=== PATIENT | male | born 1950 | race Caucasian/White ===

== ENCOUNTER 2018-04-18 07:04 | Day surgery (SDC) | payer MEDICARE, OTHER ==
[2018-04-10 11:48] VITALS: BMI 24.7
[2018-04-18] MEDS ORDERED: PROPOFOL 200 MG/20 ML VIAL ONE (11:03)
[2018-04-18] MEDS ORDERED: Lidocaine 1% PF 5 ML VIAL ONE (11:03)
--- NOTE | 2018-04-18 11:33 | ECHO ---
TRANSESOPHAGEAL ECHOCARDIOGRAM: DATE OF SERVICE: 04/18/18 PREPROCEDURE DIAGNOSIS: Mitral valve prolapse. DETAILS: Transesophageal echo was performed to evaluate mitral valve prolapse and severity of MR. The anesthes ia department provided sedation for the patient. Please see their notes for details. After adequate s edation was achieved, the transesophageal probe was inserted into the patient's mouth and into the es ophagus, and multiplanar views were then obtained. FINDINGS: Left ventricle normal size with normal wall thickness. Systolic function is normal with estimated eje ction fraction at 60%. Left atrium mildly dilated. Right atrium dilated. Right ventricle normal size with normal systolic function. Aortic valve has three cusps, no stenosis. There is mild aortic insufficiency. Pulmonary valve structurally normal. No stenosis or regurgitation. Tricuspid valve has mild prolapse of the leaflet attached to the free wall. There is mild to moderate tricuspid regurgitation. Mitral valve has severe bileaflet mitral valve prolapse with severe mitral regurgitation. Central jet in two different areas. Intraatrial septum appears to be intact by color Doppler; however, on agitated saline study, there is a very small amount of bubbles crossing over after 3 beats. Thoracic aorta is with Grade II out of V atherosclerotic disease. CONCLUSIONS: 1. Normal systolic function, ejection fraction 60%. 2. Biatrial enlargement. 3. Intraatrial septum with most likely a small patent foramen ovale, confirmed by agitated saline st udy. 4. Mild to moderate TR. 5. Mild AI. 6. Severe bileaflet mitral valve prolapse with severe central jet of mitral regurgitation. 7. Grade II out of V atherosclerotic disease of the thoracic aorta.
== END 2018-04-18 11:12 | disposition home or self-care (01) ==
LOC: CCL 07:04
PROVIDERS: ATTEND Internal Medicine Cardiovascular Disease
PROC: B245ZZ4 Ultrasonography of Left Heart, Transesophageal (ICD-10-PCS; principal; 2018-04-18)
DX: I34.0 Nonrheumatic mitral (valve) insufficiency (principal); I70.0 Atherosclerosis of aorta; N40.0 Benign prostatic hyperplasia without lower urinary tract symptoms; Z79.82 Long term (current) use of aspirin; Z79.899 Other long term (current) drug therapy
CPT/HCPCS: 93312; J2001; J2704

== ENCOUNTER 2018-05-03 13:43 | Outpatient (CLI) | payer MEDICARE, OTHER ==
[2018-05-03 16:17] LABS: #Basophils 0.1 thou/uL (0.0-0.2); #Eosinphils 0.1 thou/uL (0.0-0.7); #Lymphocytes 2.1 thou/uL (1.20-3.40); #Monocytes 0.6 thou/uL (0.11-0.59); #Neutrophils 6.3 thou/uL (1.40-6.50); %Basophils 0.8 % (0.0-1.0); %Eosinophils 1.4 % (0.0-10.0); %Lymphocytes 22.6 % (21.0-51.0); %Monocytes 6.8 % (0.0-10.0); %Neutrophils 68.4 % (42.0-75.0); Mean Corpuscular HGB CONC 33.3 g/dL (32.0-36.0); Mean Corpuscular Volume 93.1 fL (78.0-98.0); Mean Platelet Volume 8.1 fL (7.4-10.4); Platelet Count 505 thou/uL (130-400); RBC Distribution Width 13.2 % (11.5-14.5); Red Blood Cell (RBC) Count 5.15 mill/uL (4.70-6.10); White Blood Cell (WBC) Count 9.2 thou/uL (4.8-10.8)
[2018-05-03 16:24] LABS: INR-International Normal Ratio 1.1; PTT 34.4 SEC (22.9-36.1); Prothrombin Time 13.8 SEC (12.0-14.7)
[2018-05-03 16:32] LABS: ALT (SGPT) 29 U/L (8-55); AST (SGOT) 25 U/L (5-34); Albumin 4.2 g/dL (3.4-4.8); Alkaline Phosphatase 64 U/L (40-150); Anion Gap 14 mmol/L (10-20); BUN (Urea Nitrogen) 15 mg/dL (8.4-25.7); Bilirubin, Total 0.4 mg/dL (0.2-1.2); Calc. Creatinine Clearance 0 mL/min (70-130); Calcium 9.4 mg/dL (7.8-10.44); Carbon Dioxide 27 mmol/L (23-31); Chloride 105 mmol/L (98-107); Estimated GFR-MDRD 77; Globulin 2.7 g/dL (2.4-3.5); Glucose 125 mg/dL (80-115); Potassium 4.5 mmol/L (3.5-5.1); Protein, Total 6.9 g/dL (5.8-8.1); Sodium 141 mmol/L (136-145)
== END 2018-05-03 13:44 | disposition home or self-care (01) ==
LOC: LABBT 13:43
PROVIDERS: ATTEND Internal Medicine Cardiovascular Disease
DX: Z01.812 Encounter for preprocedural laboratory examination (principal); I34.0 Nonrheumatic mitral (valve) insufficiency
CPT/HCPCS: 80053; 85025; 85610; 85730

== ENCOUNTER 2018-05-06 06:03 | Day surgery (SDC) | payer MEDICARE, OTHER ==
[2018-05-03 14:56] VITALS: BMI 23.5
[2018-05-06] MEDS ORDERED: Heparin 10,000 UNITS/1 ML VIAL ONE ×2 (06:49→07:34)
[2018-05-06 07:27] LABS: Cardiac Risk 3.4 (Less than 4.5)
[2018-05-06] MEDS ORDERED: Verapamil 5 MG/2 ML VIAL ONE (07:34)
[2018-05-06] MEDS ORDERED: Nitroglycerin 100MG/250ML BOT 250 ML ONE (07:34)
[2018-05-06] MEDS ORDERED: Midazolam HCl 2 mg/2 ml Vial ONE (07:41)
[2018-05-06] MEDS ORDERED: Fentanyl 100 MCG/2 ML VIAL ONE (07:41)
[2018-05-06] MEDS ORDERED: Iopamidol 370 76% 100 ML VIAL ONE (09:24)
[2018-05-06] MEDS ORDERED: Iopamidol 370 76% 50 ML VIAL FS ONE (09:24)
== END 2018-05-06 11:28 | disposition home or self-care (01) ==
LOC: CCL 06:03
PROVIDERS: ATTEND Internal Medicine Cardiovascular Disease
PROC: 4A023N7 Measurement of Cardiac Sampling and Pressure, Left Heart, Percutaneous Approach (ICD-10-PCS; principal; 2018-05-06)
PROC: B2101ZZ Fluoroscopy of Single Coronary Artery using Low Osmolar Contrast (ICD-10-PCS; 2018-05-06)
DX: I34.0 Nonrheumatic mitral (valve) insufficiency (principal); I34.1 Nonrheumatic mitral (valve) prolapse; N40.0 Benign prostatic hyperplasia without lower urinary tract symptoms
CPT/HCPCS: 80061; 93458; 99152; C1769; J1644; J2250; J3010; Q9967

== ENCOUNTER 2018-06-17 14:04 | Outpatient (CLI) | payer MEDICARE, OTHER ==
--- NOTE | 2018-06-17 14:39 | RAD ---
2 VIEWS CHEST: Date: 06/17/18 PROVIDED CLINICAL HISTORY: Mitral valve insufficiency. FINDINGS: Cardiac and mediastinal silhouette is within normal limits. Lungs appear clear. No pleural fluid or p neumothorax apparent. IMPRESSION: No evidence for an acute cardiopulmonary process. POS: OFF
[2018-06-17 14:59] LABS: #Basophils 0.1 thou/uL (0.0-0.2); #Eosinphils 0.2 thou/uL (0.0-0.7); #Lymphocytes 2.5 thou/uL (1.20-3.40); #Monocytes 0.5 thou/uL (0.11-0.59); #Neutrophils 5.2 thou/uL (1.40-6.50); %Basophils 1.4 % (0.0-1.0); %Eosinophils 2.3 % (0.0-10.0); %Lymphocytes 29.2 % (21.0-51.0); %Monocytes 5.8 % (0.0-10.0); %Neutrophils 61.4 % (42.0-75.0); Mean Corpuscular HGB CONC 33.3 g/dL (32.0-36.0); Mean Corpuscular Hemoglobin 30.3 pg (27.0-31.0); Mean Corpuscular Volume 91.1 fL (78.0-98.0); Mean Platelet Volume 7.8 fL (7.4-10.4); Platelet Count 480 thou/uL (130-400); RBC Distribution Width 13.3 % (11.5-14.5); Red Blood Cell (RBC) Count 4.95 mill/uL (4.70-6.10); White Blood Cell (WBC) Count 8.4 thou/uL (4.8-10.8)
[2018-06-17 15:01] LABS: PTT 34.4 SEC (22.9-36.1); Prothrombin Time 13.7 SEC (12.0-14.7)
[2018-06-17 15:02] LABS: Bilirubin Negative (Negative); Blood, Urine Negative (Negative); Clarity Clear (Clear); Glucose, Urine (Dipstick) Negative (Negative); Leukocyte Negative (Negative); Nitrite Negative (Negative); Protein, Urine (Dipstick) Negative (Neg-Trace); Urobilinogen 0.2 mg/dL (0.2-1.0)
[2018-06-17 15:10] LABS: Bacteria/HPF Rare-Few HPF (None Seen); RBC/HPF None Seen HPF (0-3); Squamous Epithelial None Seen HPF (0-3); WBC/HPF None Seen HPF (0-3)
[2018-06-17 15:11] LABS: Anion Gap 11 mmol/L (10-20); BUN (Urea Nitrogen) 16 mg/dL (8.4-25.7); Calc. Creatinine Clearance 0 mL/min (70-130); Calcium 9.2 mg/dL (7.8-10.44); Carbon Dioxide 29 mmol/L (23-31); Chloride 104 mmol/L (98-107); Estimated GFR-MDRD 89; Glucose 112 mg/dL (80-115); Potassium 3.9 mmol/L (3.5-5.1); Sodium 140 mmol/L (136-145)
--- NOTE | 2018-06-17 15:15 | CT ---
CT CHEST WITHOUT CONTRAST: DATE: 06/17/2018. PROVIDED CLINICAL HISTORY: Preoperative planning for minimally invasive mitral valve replacement. FINDINGS: No comparisons. Evaluation is limited by patient respiratory motion. The heart, pericardium, and great vessels are suboptimally evaluated in the absence of IV contrast ma terial. There is minimal calcification seen involving the supralateral margin of the aortic arch. S cattered minimal calcification involves the descending thoracic aorta. There is no evidence for orestes nary or valvular calcification. The airway appears patent and of normal caliber. The lungs are free of significant opacity where not affected by respiratory motion. No pleural fluid or pneumothorax apparent. No evidence for thoraci c lymph node enlargement with limitations due to lack of IV contrast material. The visualized portions of the upper abdomen demonstrate a partially visualized exophytic cystic stru cture arising from the superior pole of the left kidney, incompletely characterized on the basis of t his study. The osseous structures demonstrate no concerning lytic or blastic lesions. IMPRESSION: 1. Minimal vascular calcification. 2. Incompletely characterized left renal hypodensity, statistically reflecting a cyst. Correlation with renal ultrasound is recommended. POS: OFF
[2018-06-17 15:35] LABS: Follow-up Chemistry Comp? YES; Follow-up Result - Chemistry REPORT FAXED
== END 2018-06-17 14:05 | disposition home or self-care (01) ==
LOC: SCSCT 14:04
DX: I34.0 Nonrheumatic mitral (valve) insufficiency (principal); I70.0 Atherosclerosis of aorta; R93.422 Abnormal radiologic findings on diagnostic imaging of left kidney
CPT/HCPCS: 36415; 71046; 71250; 80048; 81001; 85025; 85610; 85730

== ENCOUNTER 2019-04-03 10:13 | Outpatient (CLI) | payer MEDICARE, OTHER ==
--- NOTE | 2019-04-03 12:59 | ULT ---
ABDOMINAL ULTRASOUND: Date: 04/03/2019 HISTORY: Abnormal liver enzymes. FINDINGS: Images of the gallbladder show internal echoes suggesting mild sludge. No evidence of gallstone. Gall bladder wall thickness is normal. Common duct is normal caliber, measured at 4 mm. Visualized aorta and IVC are unremarkable. Pancreas mostly obscured, but unremarkable as visualized. Liver and spleen unremarkable. Both kidneys unremarkable. A simple cyst in the superior pole of the left kidney is identified measur ing 2.5-3.0 cm. IMPRESSION: Question mild gallbladder sludge. No definite gallstones. Abdominal ultrasound otherwise unremarkable . POS: [facility]
== END 2019-04-03 10:14 | disposition home or self-care (01) ==
LOC: SCSULT 10:13
PROVIDERS: ATTEND Family Medicine
DX: R74.8 Abnormal levels of other serum enzymes (principal)
CPT/HCPCS: 93975

== ENCOUNTER 2019-11-28 14:10 | Observation (INO) | payer MEDICARE, OTHER ==
[2019-11-28 15:01] LABS: #Basophils 0.1 thou/uL (0.0-0.2); #Lymphocytes 2.2 thou/uL (1.20-3.40); #Monocytes 0.6 thou/uL (0.11-0.59); #Neutrophils 8.4 thou/uL (1.40-6.50); %Basophils 0.9 % (0.0-1.0); %Eosinophils 0.4 % (0.0-10.0); %Lymphocytes 19.2 % (21.0-51.0); %Monocytes 5.2 % (0.0-10.0); %Neutrophils 74.4 % (42.0-75.0); Hemoglobin 17.6 g/dL (14.0-18.0); Mean Corpuscular HGB CONC 34.1 g/dL (32.0-36.0); Mean Corpuscular Hemoglobin 31.7 pg (27.0-31.0); Platelet Count 610 thou/uL (130-400); RBC Distribution Width 13.1 % (11.5-14.5); Red Blood Cell (RBC) Count 5.57 mill/uL (4.70-6.10); White Blood Cell (WBC) Count 11.3 thou/uL (4.8-10.8)
[2019-11-28 15:18] LABS: Bilirubin Negative (Negative); Blood, Urine Negative (Negative); Clarity Clear (Clear); Glucose, Urine (Dipstick) Normal (Negative); Ketone, Urine Negative (Negative); Leukocyte Negative Leu/uL (Negative); Nitrite Negative (Negative); Protein, Urine (Dipstick) Negative (Neg-Trace); Specific Gravity, Urine 1.009 (1.002-1.036); Urobilinogen Normal mg/dL (Less than 2)
[2019-11-28 15:32] LABS: ALT (SGPT) 68 U/L (8-55); AST (SGOT) 53 U/L (5-34); Albumin 4.2 g/dL (3.4-4.8); Alkaline Phosphatase 99 U/L (40-110); Anion Gap 12 mmol/L (10-20); BUN (Urea Nitrogen) 11 mg/dL (8.4-25.7); Bilirubin, Total 0.7 mg/dL (0.2-1.2); CK (CPK) 48 U/L (30-200); Calc. Creatinine Clearance 0 mL/min (70-130); Calcium 9.1 mg/dL (7.8-10.44); Carbon Dioxide 27 mmol/L (23-31); Chloride 103 mmol/L (98-107); Estimated GFR-MDRD 79; Globulin 3.1 g/dL (2.4-3.5); Glucose 154 mg/dL (80-115); Lipase 43 U/L (8-78); Potassium 4.3 mmol/L (3.5-5.1); Protein, Total 7.3 g/dL (5.8-8.1); Sodium 138 mmol/L (136-145)
--- NOTE | 2019-11-28 15:32 | RAD ---
XR Chest 1 View Portable HISTORY: Chest pain COMPARISON: 06/17/2018 FINDINGS: The heart size normal. The lungs are expanded without lobar consolidation, pneumothoraces o r pleural effusions. IMPRESSION: No radiographic evidence of acute cardiopulmonary process.
[2019-11-28] MEDS ORDERED: Aspirin Chewable 81 MG TAB ONE (16:29)
[2019-11-28 18:05] LABS: Troponin I 0.019 ng/mL (< 0.028)
[2019-11-28] MEDS ORDERED: Acetaminophen 650 MG Suppository PR PRN (18:07)
[2019-11-28] MEDS ORDERED: Acetaminophen 325 MG TAB PO PRN (18:07)
[2019-11-28] MEDS: Famotidine 20 MG TAB PO SCH (21:31)
[2019-11-28 21:33] LABS: Troponin I 0.026 ng/mL (< 0.028)
--- NOTE | 2019-11-28 21:55 | ULT ---
Carotid duplex sonogram HISTORY: Syncope. Vascular disease. FINDINGS: Right: Minimal plaque. Color and spectral Doppler evaluation, peak systolic velocity of 66 cm/s, and IC to CC ratio of 0.9 suggest no hemodynamically significant stenosis within the extracranial right ICA. Antegrade flow within the vertebral artery. Left: Minimal plaque. Color and spectral Doppler evaluation, peak systolic velocity of 63 cm/s, and I C to CC ratio of 1.2 suggest no hemodynamically significant stenosis within the extracranial left ICA. Antegrade flow within the vertebral artery. IMPRESSION : No evidence of significant stenosis.
[2019-11-28 22:10] VITALS: BMI 23.9
--- NOTE | 2019-11-29 00:19 | PDOC.HHP ---
Hospitalist HPI - History of Present Illness chest pain History of Present Illness: Patient presents with complaints of chest pain that occurred earlier today while he was sitting. He states it was on the right side of his chest and describes "small stabs" and then he felt it on the left side of his chest and then in between the scapula. He states the pain lasted a few seconds and was a 7/10 in severity. He eased quickly and was not reproducible on palpation. He denies any associated shortness of breath or diaphoresis. States his pain was tolerable and he did not take anything for it. It subsided on its own and has not recurred since. He states this is the first time he has experienced discom fort but has had vague symptoms since March. Reports having almost daily episodes of focal numbness in different parts of his body that last a few seconds. One one occasion it was on his right elbow, another occasion on involved his knees. Reports having a stroke in 10/2018 after having MV repair. He therefore believes this are indicative of TIAs. Denies any associated slurred speech or facial weakness. No extremity weakness. Has only had difficulty holding objects on one occasion when he had a brief episode of numbness in his left thumb and forefinger that lasted seconds. He discussed with Dr. Magdaleno who advised him to come in. He reports having a loop recorder in place due to frequent episodes of lightheadedness which cause him to be unsteady on his feet. He saw Dr. Magdaleno in Mar 2018 when he had a near syncopal episode. States he was putting air in his tire and was bent over while talking on the phone and upon standing he became lightheaded and dizzy. Did not have a fall. Currently he denies any chest pain or sob. Denies any lightheadedness/dizziness today. Has not had any n/v. No diaphoresis. Denies any fevers, chills or sweats. No cough or hemoptysis. No lower leg swelling or calf tenderness. No abdominal pain, bowel changes or urinary symptoms. All other review of systems negative. Reports having an Echo done in the last [address] Magdaleno. Of note, patient had a cath done in 04/2018 which was normal. ED COURSE: EKG done in the ED showed NSR, with HR of 69. Frequent PVCs noted. CXR unremarkable. Labs showed WCC 11.3, Hgb 17.6, Hct 51.8, Platelets 610. Trop negative. AST 53, ALT 68, lipase normal. CK 48. Glucose 154. BUN 11, creat 0.95, GFR 79. UA unremarkable. Given Aspirin 324 mg PO x 1. PAST MEDICAL HISTORY: 1. Hx of Afib 2. History of CVA 3. GERD. 4. Hyperlipidemia. 5. BPH. PAST SURGICAL HISTORY: 1. Mitral valve repair 2019. SOCIAL HISTORY: Denies any tobacco use, alcohol consumption or drug use. FAMILY HISTORY: His mother who is had heart disease. ALLERGIES: No known drug allergies. CURRENT MEDICATIONS: 1. Eliquis. 2. Finasteride. 3. Omeprazole. 4. B12. 5. Atorvastatin. Hospitalist ROS - Medication Medications: Active Medications Generic Name Dose Route Start Last Admin Trade Name Freq PRN Reason Stop Dose Admin Famotidine 20 mg 11/28/19 21:00 11/28/19 21:31 Famotidine 20 Mg Tab PO 20 mg BID JENNIFER Administration Sodium Chloride 10 ml 11/28/19 18:07 11/28/19 21:32 Flush - Normal Saline 10 Ml Syringe IVF 10 ml Q12HR PRN Administration Saline Flush - Exam General Appearance: NAD, awake alert General - other findings: VS: Temp 97.9, HR 68, BP 113/89, RR 17, O2 sat 97% on RA. Eye: PERRL, anicteric sclera ENT: normocephalic atraumatic, dry oral mucosa Neck: supple, no lymphadenopathy Heart: RRR, normal peripheral pulses Heart - other findings: not reproducible on exam Respiratory: CTAB, no wheezes, no rales, no ronchi, normal chest expansion, no tachypnea Gastrointestinal: soft, non-tender, non-distended, normal bowel sounds, no p alpable masses, no guarding, no rigidity Extremities: no edema Skin: normal turgor, no lesions, no rashes Neurological: cranial nerve grossly intact, normal sensation to touch, no focal deficits Neurological - other findings: power 5/5 in all extremities, coordination intact Musculoskeletal: normal tone, no muscle wasting Psychiatric: normal affect, normal behavior, A&O x 3 Psychiatric - other findings: Speech normal. Facial movements and sensation intact Hospitalist Results - Labs Result Diagrams: 11/29/19 01:14 11/28/19 14:29 Lab results: WBC 11.3 thou/uL (4.8-10.8) H 11/28/19 14:29 Hgb 17.6 g/dL (14.0-18.0) 11/28/19 14:29 Hct 51.8 % (42.0-52.0) 11/28/19 14:29 MCV 93.0 fL (78.0-98.0) 11/28/19 14:29 Plt Count 610 thou/uL (130-400) H 11/28/19 14:29 Neutrophils % 74.4 % (42.0-75.0) 11/28/19 14:29 Sodium 138 mmol/L (136-145) 11/28/19 14:29 Potassium 4.3 mmol/L (3.5-5.1) 11/28/19 14:29 Chloride 103 mmol/L (98-107) 11/28/19 14:29 Carbon Dioxide 27 mmol/L (23-31) 11/28/19 14:29 BUN 11 mg/dL (8.4-25.7) 11/28/19 14:29 Creatinine 0.95 mg/dL (0.7-1.3) 11/28/19 14:29 Glucose 154 mg/dL (80-115) H 11/28/19 14:29 Calcium 9.1 mg/dL (7.8-10.44) 11/28/19 14:29 Total Bilirubin 0.7 mg/dL (0.2-1.2) 11/28/19 14:29 AST 53 U/L (5-34) H 11/28/19 14:29 ALT 68 U/L (8-55) H 11/28/19 14:29 Alkaline Phosphatase 99 U/L (40-110) 11/28/19 14:29 Creatine Kinase 48 U/L (30-200) 11/28/19 14:29 Troponin I 0.026 ng/mL (< 0.028) 11/28/19 20:55 Serum Total Protein 7.3 g/dL (5.8-8.1) 11/28/19 14:29 Albumin 4.2 g/dL (3.4-4.8) 11/28/19 14:29 Lipase 43 U/L (8-78) 11/28/19 14:29 Urine Ketones Negative mg/dL (Negative) 11/28/19 15:02 Urine Blood Negative (Negative) 11/28/19 15:02 Urine Nitrite Negative (Negative) 11/28/19 15:02 Ur Leukocyte Esterase Negative Barbara/uL (Negative) 11/28/19 15:02 - Radiology Interpretation Chest x-ray Status: report reviewed by me Hospitalist H&P A/P - Problem (1) Chest pain Code(s): R07.9 - CHEST PAIN, UNSPECIFIED Status: Acute Assessment and Plan: No pain since arrival to ED. Continue cardiac monitoring. Trend troponins. Consult Dr. Magdaleno. (Normal cath in 04/2018). Continue aspirin and statin. (2) Lightheadedness Code(s): R42 - DIZZINESS AND GIDDINESS Status: Chronic Assessment and Plan: Loop recorder in since 03/2018, per patient. States echo done in last 6 months. No repeat unless indicated by Dr. Magdaleno. Orthostatic BPs ordered. Carotid US ordered. Monitor BP and glucose. (3) Numbness and tingling Code(s): R20.0 - ANESTHESIA OF SKIN; R20.2 - PARESTHESIA OF SKIN Status: Chronic Assessment and Plan: Vague transient episodes of pin point numbness tingling that varies in location. Day team to decide if further investigations or neuro input indicated. No symptoms at present. (4) History of CVA (cerebrovascular accident) Code(s): Z86.73 - PRSNL HX OF TIA (TIA), AND CEREB INFRC W/O RESID DEFICITS Status: Chronic (5) Afib Code(s): I48.91 - UNSPECIFIED ATRIAL FIBRILLATION Status: Chronic Assessment and Plan: Cardiac monitoring. 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 Continue Eliquis. (7) History of mitral valve repair Code(s): Z98.890 - OTHER SPECIFIED POSTPROCEDURAL STATES Status: Chronic - Plan Plan: GI prophylaxis, continue Famotidine 20 mg BID. CODE STATUS FULL
[2019-11-29 01:23] LABS: #Basophils 0.1 thou/uL (0.0-0.2); #Eosinphils 0.1 thou/uL (0.0-0.7); #Lymphocytes 2.4 thou/uL (1.20-3.40); #Monocytes 0.6 thou/uL (0.11-0.59); #Neutrophils 5.7 thou/uL (1.40-6.50); %Basophils 1.4 % (0.0-1.0); %Eosinophils 1.6 % (0.0-10.0); %Lymphocytes 26.7 % (21.0-51.0); %Monocytes 6.9 % (0.0-10.0); %Neutrophils 63.4 % (42.0-75.0); Hemoglobin 16.5 g/dL (14.0-18.0); Mean Corpuscular HGB CONC 34.2 g/dL (32.0-36.0); Mean Corpuscular Hemoglobin 31.4 pg (27.0-31.0); Mean Corpuscular Volume 91.8 fL (78.0-98.0); Mean Platelet Volume 7.9 fL (7.4-10.4); Platelet Count 524 thou/uL (130-400); RBC Distribution Width 13.1 % (11.5-14.5); Red Blood Cell (RBC) Count 5.25 mill/uL (4.70-6.10); White Blood Cell (WBC) Count 8.9 thou/uL (4.8-10.8)
[2019-11-29 01:44] LABS: Lactic Acid 1.1 mmol/L (0.5-2.2)
[2019-11-29 01:53] LABS: Anion Gap 8 mmol/L (10-20); BUN (Urea Nitrogen) 11 mg/dL (8.4-25.7); Calc. Creatinine Clearance 76 mL/min (70-130); Calcium 8.7 mg/dL (7.8-10.44); Carbon Dioxide 27 mmol/L (23-31); Cardiac Risk 2.3 (Less than 4.5); Chloride 106 mmol/L (98-107); Cholesterol 115 mg/dl (< 200 Desired); Estimated GFR-MDRD 84; Glucose 147 mg/dL (80-115); HDL Cholesterol 49 mg/dL (>60 Neg Risk); LDL Cholesterol, Calculated 53 mg/dL; Potassium 3.4 mmol/L (3.5-5.1); Sodium 138 mmol/L (136-145); Triglycerides 66 mg/dL (Less than 150)
[2019-11-29] MEDS ORDERED: Aspirin 81 mg Enteric Coated Tablet PO SCH (09:00)
[2019-11-29] MEDS ORDERED: Lactinex Tablet PO SCH (09:00)
[2019-11-29] MEDS ORDERED: Apixaban 5 MG TAB PO SCH (09:00)
[2019-11-29] MEDS ORDERED: Cyanocobalamin (Vitamin B-12) 1,000 MCG TAB PO SCH (09:00)
[2019-11-29] MEDS: Famotidine 20 MG TAB PO SCH (09:27)
[2019-11-29 12:49] VITALS: BP 134/71; TEMP 99
[2019-11-29] MEDS ORDERED: Potassium Chloride 20 MEQ TAB PO SCH (13:45)
--- NOTE | 2019-11-29 14:07 | CON ---
DATE OF CONSULTATION: 11/29/2019 REASON FOR CONSULTATION: Chest pain, history of transient ischemic attacks. PRIMARY ON AWAKE COUNSELOR: Long Magdaleno MD HISTORY OF PRESENT ILLNESS: Mr. Pino is a very pleasant 69-year-old gentleman. He has a history of previous mitral valve repair. In the postoperative period, it was identified that he had a small stroke. He has had multiple episodes of transient ischemic attacks, it has been unclear what the etiology is. He also has a LINQ recorder placed. He had a heart catheterization done a year and a half ago, which was normal, done by Dr. Magdaleno. Also has a history of hypercholesterolemia, on medicines. The patient had an episode of chest pain in the middle of his chest going across his chest and between the shoulder blades. It persisted. He came to the emergency room. He was found to have indeterminate troponins, but there was no further increase past a peak of 0.030, which is just above the indeterminate range. MEDICATIONS: At home, 1. Atorvastatin 80 mg a day. 2. Eliquis 5 mg twice a day. 3. Prilosec. ALLERGIES: NONE KNOWN. SOCIAL HISTORY: No alcohol or tobacco. He has a very supportive family. REVIEW OF SYSTEMS: CONSTITUTIONAL: No significant weight gain or loss. VISION: No changes. HEARING: No changes. PULMONARY: No cough or wheezing. GASTROINTESTINAL: No nausea, vomiting, or diarrhea. SKIN: No rashes. NEUROLOGIC: Unilateral weakness and numbness. PSYCHIATRIC: No unusual depression or anxiety. PHYSICAL EXAMINATION: GENERAL: This is a pleasant 69-year-old gentleman resting comfortably. VITAL SIGNS: Blood pressure 138/70, pulse 54 and regular. HEENT: Eyes, sclerae nonicteric. Mouth, mucous membranes moist. NECK: Supple. No lymphadenopathy. LUNGS: Clear. CARDIAC: Normal S1, normal S2. I do not hear murmur, rub, or gallop. ABDOMEN: Soft and nontender. EXTREMITIES: Warm and dry. No clubbing. No cyanosis or edema. PSYCHIATRIC: Mood and affect normal. NEUROLOGIC: Grossly normal. ASSESSMENT: 1. Chest pain of uncertain etiology. 2. Indeterminate troponins. 3. Normal coronary arteries. 4. Hypercholesterolemia, well controlled. LDL is 53. 5. Mild hypokalemia. Potassium 3.4. 6. Premature ventricular contraction was seen on EKG. PLAN: 1. Replete potassium. 2. Continue Eliquis. 3. He has appointment to check with Dr. Magdaleno on Sunday. Continue current medical regimen with the only addition of nitroglycerin if needed, in case this represents an unusual form of coronary spasm causing his chest pain. He had no evidence of fixed coronary artery disease based on catheterization done on 05/06/2018. Job ID: [id number]
--- NOTE | 2019-11-29 14:09 | EKG ---
Test Reason : Blood Pressure : / mmHG Vent. Rate : 069 BPM Atrial Rate : 069 BPM P-R Int : 152 ms QRS Dur : 086 ms QT Int : 402 ms P-R-T Axes : 073 055 052 degrees QTc Int : 430 ms Sinus rhythm with occasional Premature ventricular complexes Possible Left atrial enlargement Borderline ECG Confirmed by SOHAIL SCHULZ ([id number]), editor sound NAV BLAND ([id number]) on 11/29/2019 2:08:48 PM Referred By: Confirmed By:SOHAIL Joyner
--- NOTE | 2019-11-29 20:37 | DIS ---
DATE OF ADMISSION: 11/28/2019 DATE OF DISCHARGE: 11/29/2019 DISCHARGE DIAGNOSES: 1. Chest pain, question of angina versus coronary vasospasms. 2. Chronic atrial fibrillation with chronic anticoagulation with Eliquis. 3. Mitral valve repair. 4. Hyperlipidemia. PERTINENT LABORATORY AND X-RAY FINDINGS: Potassium ranged between 3.4 to 4.3. Troponin I ranged between 0.015-0.030. Magnesium level 1.8. Total cholesterol 115, triglycerides 66, HDL 49, LDL 53, TSH 1.66, lipase 43. CBC showed white blood cell count ranged between 8.9 to 11.3. Portable chest x-ray dated 11/28/2019, showed no acute cardiopulmonary process. Carotid Doppler study dated 11/28/2019, showed no hemodynamically significant stenosis. HOSPITAL COURSE: The patient was observed on the telemetry unit after initially presenting with chest pain. The patient underwent serial cardiac biomarkers showing a mild elevation in troponin I, prompting evaluation by the Cardiology Service. The patient underwent a cardiac catheterization in April of 2018 showing normal coronary anatomy. The patient was evaluated by Cardiology Service with recommendations to continue aspirin 81 mg daily in addition to Eliquis. The patient was also initiated on sublingual nitroglycerin as needed for chest pain recurrence. No current recommendations for acute intervention per Cardiology recommendations. The patient overall remained clinically stable during the hospital course with telemetry monitoring showing sinus mechanism without acute arrhythmia or dysrhythmia. The patient overall remained clinically stable, stable vital signs throughout the hospital course. I have examined the patient at the time of discharge and discussed followup instructions. The patient verbalizes understanding and agreement, ready for discharge on 11/29/2019. DISCHARGE MEDICATIONS: 1. Eliquis 5 mg p.o. b.i.d. 2. Lipitor 80 mg p.o. at bedtime. 3. Omeprazole 20 mg p.o. daily. 4. Lactobacillus one capsule p.o. daily. 5. Proscar 5 mg p.o. daily. 6. Vitamin B12 2500 mcg p.o. daily. 7. Enteric-coated aspirin 81 mg p.o. daily. 8. Nitroglycerin 0.4 mg sublingually q.5 minutes p.r.n. chest pain. FOLLOWUP: The patient may follow up with his primary care provider within 7 days of discharge, Dr. Kuy Zulay. The patient will follow up with Dr. Magdaleno with Cardiology Service on 12/01/2019. CONDITION ON DISCHARGE: Stable. ACTIVITY: Ad-david. DIET: Heart healthy. CODE STATUS: Full. DISPOSITION: To home on 11/29/2019. TIME SPENT: Total time preparing and coordinating discharge, 32 minutes. Job ID: [id number]
[2019-11-29] MEDS ORDERED: Atorvastatin Calcium 40 MG TAB PO SCH (21:00)
== END 2019-11-29 14:41 | disposition home or self-care (01) ==
LOC: ERS 14:10 → 2NO 16:36
PROVIDERS: ADMIT Student in an Organized Health Care Education/Training Program; ATTEND Student in an Organized Health Care Education/Training Program
DX: R07.9 Chest pain, unspecified (principal); R42 Dizziness and giddiness; I48.20 Chronic atrial fibrillation, unspecified; E87.6 Hypokalemia; I49.3 Ventricular premature depolarization; K21.9 Gastro-esophageal reflux disease without esophagitis; E78.00 Pure hypercholesterolemia, unspecified; E78.5 Hyperlipidemia, unspecified; Z79.01 Long term (current) use of anticoagulants; Z79.899 Other long term (current) drug therapy; Z86.73 Personal history of transient ischemic attack (TIA), and cerebral infarction without residual deficits
CPT/HCPCS: 36415; 71045; 80048; 80053; 80061; 81003; 82550; 82553; 83605; 83690; 83735; 84443; 84484; 85025; 93005; 93880; 94760; G0378

== ENCOUNTER 2019-12-25 07:29 | Outpatient (CLI) | payer MEDICARE, OTHER ==
--- NOTE | 2019-12-25 09:41 | MRI ---
MRI BRAIN WITH AND WITHOUT CONTRAST: DATE: 12/25/2019 HISTORY: 69-year-old male with paroxysmal atrial fibrillation and prior stroke. COMPARISON: 03/21/2019 TECHNIQUE: Multiplanar, multisequence MRI of the brain performed pre- and post-IV injection of gadolinium based contrast agent. FINDINGS: There is an approximately 4.5 x 3.5 x 3.5 cm region of left parietal encephalomalacia and gliosis. Th ere are a few scattered tiny punctate foci of T2 and FLAIR hyperintensity in the bilateral cerebral white matter consistent with minimal or mild chronic ischemic white matter changes due to microvascul ar atherosclerosis. The ventricles are normal in size and configuration. There is no restricted diffusion to indicate any acute infarction. There a few punctate tiny focal hemosiderin stains in rig ht parietal lobe and left lateral upper frontal lobe consistent with tiny foci of remote hemorrhages. There is no acute intra-axial hemorrhage. No extra-axial fluid collection. No abnormal e nhancement, mass effect, midline shift, or extra-axial fluid collection. In the right fossa of Rosenmuller, there is an approximately 1.2 x 0.7 x 1.1 cm lesion which is T2 and FLAIR hyperintense, T1 isointense relative to muscle, with thin rim enhancement and enhancement of a septum within it. There has been no interval change overall since the noncontrast MRI of 03/21/2019. IMPRESSION: 1) moderate size old left parietal infarction in the left middle cerebral artery territory. 2) no acute findings. 3) small lesion in the right lateral pharyngeal recess. This could be a complex mucus retention cyst. However, otolaryngology consultation is recommended for direct visualization to rule out a more aggressive etiology.
[2019-12-25] MEDS ORDERED: Magnevist 469MG/ML 20 ML VIAL ONE (15:22)
== END 2019-12-25 07:30 | disposition home or self-care (01) ==
LOC: BICMRI 07:29
PROVIDERS: ATTEND Internal Medicine Cardiovascular Disease
DX: I48.0 Paroxysmal atrial fibrillation (principal); G93.89 Other specified disorders of brain
CPT/HCPCS: 70553; 82565; A9579